=== PATIENT | male | born 1995 | race Caucasian/White ===

== ENCOUNTER 2018-07-14 23:11 | Emergency (ER) | payer OTHER ==
[~2018-07-14] VITALS: Ht 177.8 cm; Wt 81.6 kg
[2018-07-14 23:19] VITALS: Ht 177.8 cm; Wt 81.6 kg
[2018-07-15 00:09] VITALS: BP 151/71
== END 2018-07-15 00:45 | disposition other institution (70) ==
LOC: ED 23:11
DX: S00.83XA Contusion of other part of head, initial encounter (principal); S09.8XXA Other specified injuries of head, initial encounter; S00.81XA Abrasion of other part of head, initial encounter; Y04.8XXA Assault by other bodily force, initial encounter; Y93.89 Activity, other specified; Y92.89 Other specified places as the place of occurrence of the external cause; Y99.8 Other external cause status